=== PATIENT | male | born 1965 | race Caucasian/White ===

== ENCOUNTER 2020-06-19 16:28 | Outpatient (RCR) | payer OTHER, SELFPAY ==
[2020-06-19] MEDS: COVID-19 VACC, MRNA(PFIZER)/PF 30 MCG/0.3 ML SYRINGE IM (11:35)
[2020-07-10] MEDS: COVID-19 VACC, MRNA(PFIZER)/PF 30 MCG/0.3 ML SYRINGE IM (11:13)
== END 2020-06-19 23:59 ==
LOC: IMMUN 16:28
PROVIDERS: Visit Provider Family Medicine
DX: Z23 Encounter for immunization (principal)
CPT/HCPCS: 0001A; 0002A; 91300